=== PATIENT | female | born 1970 | race Caucasian/White ===

== ENCOUNTER 2020-11-02 23:15 | Emergency (ER) | payer SELFPAY ==
[~2020-11-02] VITALS: Ht 175.3 cm; Wt 81.6 kg
[2020-11-02 23:15] VITALS: BP_SYST 173
[2020-11-03] MEDS ORDERED: cloNIDine HCL 0.1 MG TABLET ONE (00:39)
[2020-11-03 00:45] VITALS: BP_SYST 159
[2020-11-03] MEDS ORDERED: cloNIDine HCL 0.1 MG TABLET PO ONE (00:45)
== END 2020-11-03 00:45 | disposition home or self-care (01) ==
LOC: SED 23:15
DX: T38.3X1A Poisoning by insulin and oral hypoglycemic [antidiabetic] drugs, accidental (unintentional), initial encounter (principal); E11.9 Type 2 diabetes mellitus without complications; Z88.5 Allergy status to narcotic agent; Y92.89 Other specified places as the place of occurrence of the external cause
CPT/HCPCS: 81002; 82962; 99283